=== PATIENT | male | born 1945 ===

== ENCOUNTER → 2016-06-05 | Outpatient (CLI) | payer MEDICARE, BC ==
[2016-06-05 07:36] LABS: ESTIMATED GFR (MDRD EQUATION) > 60
== END | disposition disaster alternative care site (69) ==
LOC: GRAD 06:42 → GLAB 07:00 → GRAD 08:00
PROVIDERS: Otolaryngology
DX: H91.92 Unspecified hearing loss, left ear (principal)

== ENCOUNTER → 2016-06-23 | Outpatient (CLI) | payer MEDICARE, BC | END | disposition disaster alternative care site (69) | LOC: LKCL 09:51 | DX: R68.82 Decreased libido (principal) ==